=== PATIENT | female | born 1980 | race Caucasian/White ===

== ENCOUNTER 2021-02-19 11:32 | Emergency (ER) | payer OTHER ==
[~2021-02-19 11:32] MED LIST: BACTRIM DS TAB1 EACH PO; KEFLEX250 MG PO; MOBIC15 MG PO; NORCO 5-325 TA1 EACH PO; ROBAXIN750 MG PO; ZOFRAN4 MG PO
[2021-02-19 12:29] LABS: BASOPHIL 0.5 % (0-2); EOSINOPHIL 0.7 % (0-5); HCT 50.3 % (37.0-47.0); HGB 17.4 g/dl (12.5-16.0); LYMPHOCYTE 30.9 % (15-48); MCH 32.8 pg (25.0-31.0); MCHC 34.6 g/dL (32.0-36.0); MCV 94.7 fL (78.0-100.0); MONOCYTE 4.7 % (0-12); MPV 10.2 fL (6.0-9.5); NRBC 0; PLT 376 K/uL (150-400); RBC 5.31 M/uL (4.20-5.40); RDW 15.1 % (11.5-14.0); WBC 12.3 K/uL (4.0-10.5)
[2021-02-19 12:50] LABS: BILIRUBIN - TOTAL 0.5 mg/dL (0.2-1.0); BUN/CREAT RATIO (CALC) 8.9 RATIO; CREATININE 0.9 mg/dL (0.51-0.95); GLOBULIN (CALCULATION) 3.5 g/dL; POTASSIUM 3.8 mmol/L (3.5-5.1); TOTAL PROTEIN 7.5 g/dL (6.4-8.2)
[2021-02-19 12:54] LABS: BILIRUBIN NEGATIVE (NEGATIVE); BLOOD 1+ Ery/uL (NEGATIVE); CLARITY CLEAR (CLEAR); COLOR YELLOW (YELLOW); GLUCOSE (U) NORMAL (NORMAL); LEUKOCYTES TRACE Leu/uL (NEGATIVE); NITRITE NEGATIVE (NEGATIVE); PROTEIN 2+ mg/dL (NEGATIVE); UROBILINOGEN 0.2 mg/dL (0.2-1.0)
[2021-02-19 13:14] LABS: BACTERIA 1+
[2021-02-19 13:20] LABS: HCG (URINE) SCREEN NEGATIVE (NEGATIVE)
[2021-02-19] MEDS ORDERED: ONDANSETRON ODT4 MG PO (15:28)
[2021-02-19] MEDS ORDERED: ANTIVERT25 MG PO (15:28)
== END 2021-02-19 15:40 | disposition home or self-care (01) ==
LOC: FER 11:32
PROVIDERS: Emergency Medicine
DX: H81.399 Other peripheral vertigo, unspecified ear (principal); I10 Essential (primary) hypertension; I48.91 Unspecified atrial fibrillation; F17.210 Nicotine dependence, cigarettes, uncomplicated; Z20.822 Contact with and (suspected) exposure to COVID-19
CPT/HCPCS: 36415; 70450; 80053; 81001; 84145; 84484; 84703; 85025; 93005; J2060; J2405; J7030; U0002

== ENCOUNTER 2021-05-11 21:01 | Emergency (ER) | payer OTHER ==
[~2021-05-11 21:01] MED LIST changes: +ANTIVERT25 MG PO; +ONDANSETRON ODT4 MG PO
[2021-05-11] MEDS ORDERED: TOPROL XL25 MG PO (21:55)
[2021-05-11] MEDS ORDERED: ZOFRAN4 M1 PO (21:55)
== END 2021-05-11 22:40 | disposition home or self-care (01) ==
LOC: FER 21:01
DX: Z20.822 Contact with and (suspected) exposure to COVID-19 (principal); R09.89 Other specified symptoms and signs involving the circulatory and respiratory systems; I48.91 Unspecified atrial fibrillation; F17.210 Nicotine dependence, cigarettes, uncomplicated; I10 Essential (primary) hypertension; Z79.899 Other long term (current) drug therapy
CPT/HCPCS: 99283

== ENCOUNTER 2021-11-20 11:20 | Emergency (ER) | payer OTHER ==
[~2021-11-20 11:20] MED LIST changes: +TOPROL XL25 MG PO; +ZOFRAN4 M1 PO
[2021-11-20 15:16] LABS: BASOPHIL 0.4 % (0-2); EOSINOPHIL 1.2 % (0-5); HCT 49.7 % (37.0-47.0); HGB 17.1 g/dl (12.5-16.0); LYMPHOCYTE 29.7 % (15-48); MCH 32.5 pg (25.0-31.0); MCHC 34.4 g/dL (32.0-36.0); MCV 94.5 fL (78.0-100.0); MONOCYTE 5.6 % (0-12); MPV 10.5 fL (6.0-9.5); NEUTROPHIL 62.9 % (41-80); NRBC 0; PLT 268 K/uL (150-400); RBC 5.26 M/uL (4.20-5.40); RDW 13.2 % (11.5-14.0); WBC 10.8 K/uL (4.0-10.5)
[2021-11-20 15:38] LABS: BUN/CREAT RATIO (CALC) 15.6 RATIO; CREATININE 0.9 mg/dL (0.51-0.95); POTASSIUM 3.9 mmol/L (3.5-5.1)
== END 2021-11-20 17:55 | disposition left against medical advice (07) ==
LOC: FER 11:20
PROVIDERS: Nurse Practitioner Family
DX: R10.11 Right upper quadrant pain (principal); Z53.8 Procedure and treatment not carried out for other reasons
CPT/HCPCS: 36415; 80048; 85025; J1885; J7030

== ENCOUNTER 2022-07-12 08:44 | Emergency (ER) | payer OTHER ==
[2022-07-12 10:12] LABS: BASOPHIL 0.6 % (0-2); EOSINOPHIL 7.8 % (0-5); HGB 14.9 g/dl (12.5-16.0); LYMPHOCYTE 34.6 % (15-48); MCH 31.6 pg (25.0-31.0); MCHC 34.7 g/dL (32.0-36.0); MCV 91.1 fL (78.0-100.0); MPV 10.5 fL (6.0-9.5); NEUTROPHIL 49.9 % (41-80); NRBC 0; PLT 284 K/uL (150-400); RBC 4.72 M/uL (4.20-5.40); RDW 13.4 % (11.5-14.0); WBC 7.8 K/uL (4.0-10.5)
[2022-07-12 10:41] LABS: ALBUMIN 3.6 g/dL (3.4-5.0); BILIRUBIN - TOTAL 0.4 mg/dL (0.2-1.0); BUN/CREAT RATIO (CALC) 14.7 RATIO; CREATININE 1.02 mg/dL (0.51-0.95); GLOBULIN (CALCULATION) 3.4 g/dL; POTASSIUM 3.6 mmol/L (3.5-5.1)
[2022-07-12 11:16] LABS: BILIRUBIN NEGATIVE (NEGATIVE); BLOOD TRACE-INTACT Ery/uL (NEGATIVE); CLARITY CLEAR (CLEAR); COLOR YELLOW (YELLOW); GLUCOSE (U) NORMAL (NORMAL); LEUKOCYTES NEGATIVE Leu/uL (NEGATIVE); NITRITE NEGATIVE (NEGATIVE); PROTEIN NEGATIVE (NEGATIVE); SPECIFIC GRAVITY 1.015 (1.001-1.030); UROBILINOGEN 0.2 mg/dL (0.2-1.0)
[2022-07-12 11:26] LABS: BACTERIA TRACE
[2022-07-12] MEDS ORDERED: PEPCID AC20 MG PO (11:54)
[2022-07-12] MEDS ORDERED: ONDANSETRON ODT4 MG PO (11:54)
== END 2022-07-12 12:17 | disposition home or self-care (01) ==
LOC: FER 08:44
PROVIDERS: Emergency Medicine
DX: R11.2 Nausea with vomiting, unspecified (principal); I11.0 Hypertensive heart disease with heart failure; I50.9 Heart failure, unspecified; Z28.310 Unvaccinated for COVID-19
CPT/HCPCS: 36415; 71045; 80053; 81001; 84484; 85025; 93005; J2405; J7040